=== PATIENT | female | born 1950 | race Caucasian/White ===

== ENCOUNTER 2021-08-29 10:01 | Outpatient (CLI) | payer MEDICARE, OTHER | END 2021-08-29 10:02 | disposition home or self-care (01) | LOC: CSHCT 10:01 | PROVIDERS: ATTEND Internal Medicine Gastroenterology | DX: R14.0 Abdominal distension (gaseous) (principal); K59.00 Constipation, unspecified; R10.12 Left upper quadrant pain; K76.9 Liver disease, unspecified; K76.89 Other specified diseases of liver; R22.2 Localized swelling, mass and lump, trunk; Z90.49 Acquired absence of other specified parts of digestive tract; Z90.710 Acquired absence of both cervix and uterus | CPT/HCPCS: 74177 ==

== ENCOUNTER 2023-07-14 11:03 | Outpatient (CLI) | payer MEDICARE, OTHER | END 2023-07-14 11:04 | disposition home or self-care (01) | LOC: CSHMAMMO 11:03 | PROVIDERS: ATTEND Family Medicine | DX: Z13.820 Encounter for screening for osteoporosis (principal); Z78.0 Asymptomatic menopausal state | CPT/HCPCS: 77080 ==